=== PATIENT | male | born 1975 | race African-American/Black ===

== ENCOUNTER 2020-10-08 01:08 | Emergency (ER) | payer OTHER, MEDICAID ==
[~2020-10-08] VITALS: Ht 167.6 cm; Wt 85.0 kg
[~2020-10-08 01:08] MED LIST: METH5TAB68
[2020-10-08 01:32] VITALS: BP 142/77
== END 2020-10-08 02:05 | disposition home or self-care (01) ==
LOC: ER 01:08
DX: R10.84 Generalized abdominal pain (principal)
CPT/HCPCS: 93005; 99283